=== PATIENT | female | born 1950 | race Caucasian/White ===

== ENCOUNTER 2018-01-18 05:50 | Inpatient (IN) | payer OTHER ==
[~2018-01-18] VITALS: Ht 162.6 cm; Wt 64.4 kg
[2018-01-18] MEDS ORDERED: ALVIMOPAN 12 MG CAPSULE PO ONE ×2 (06:26→06:45)
[2018-01-18] MEDS ORDERED: CEFOXITIN 2 GM/DEXTROSE,ISO 50 ML (PREMIX) IV ONE (06:45)
[2018-01-18] MEDS ORDERED: cefOXitin SODIUM 2 GM in D5W 100 ML IV ONE (06:45)
[2018-01-18] MEDS ORDERED: LR 1,000 ML IV.SOLN IV ONE (07:30)
[2018-01-18] MEDS ORDERED: MORPHINE SULFATE 10MG/10ML PF AMP EP ONE (07:30)
[2018-01-18] MEDS ORDERED: DEXAMETHASONE SOD PHOSPHATE 4 MG/ML VIAL IVP ONE (07:30)
[2018-01-18] MEDS ORDERED: PROPOFOL 200MG/ 20ML VIAL (DIPRIVAN) IV ONE (07:30)
[2018-01-18] MEDS ORDERED: ONDANSETRON HCL 4 MG/2 ML VIAL IVP ONE (07:30)
[2018-01-18] MEDS ORDERED: ROCURONIUM BROMIDE 10 MG/ML (ZEMURON) IV ONE (07:30)
[2018-01-18] MEDS ORDERED: SEVOFLURANE 15 MIN GAS INH ONE (07:30)
[2018-01-18] MEDS ORDERED: KETOROLAC TROMETHAMINE 30 MG VIAL IVP ONE (07:30)
[2018-01-18] MEDS ORDERED: cefOXitin SODIUM 2 GM/VIAL (MEFOXIN) IV ONE (07:30)
[2018-01-18] MEDS ORDERED: GLYCOPYRROLATE 0.2 MG/ML VIAL IJ ONE (07:30)
[2018-01-18] MEDS ORDERED: BUPIVACAINE LIPOSOME/PF 266 MG/20 ML VIAL INFIL ONE (07:30)
[2018-01-18] MEDS ORDERED: fentaNYL CITRATE/PF 100 MCG/2 ML AMP IVP ONE (07:30)
[2018-01-18] MEDS ORDERED: MIDAZOLAM HCL 5 MG/5 ML VIAL IVP ONE (07:30)
[2018-01-18] MEDS ORDERED: NEOSTIGMINE METHYLSULFATE 1 MG/ML, 10 ML VIAL IVP ONE (07:30)
[2018-01-18] MEDS ORDERED: POLYMYXIN 500,000/BACIT.10,000 UNITS in NS IRR 1 L IR ONE (07:58)
[2018-01-18] MEDS ORDERED: MORPHINE SULFATE 10MG/10ML PF AMP SP SCH (08:30)
[2018-01-18] MEDS ORDERED: ONDANSETRON HCL 4 MG/2 ML VIAL IVP PRN ×3 (08:30→10:15)
[2018-01-18] MEDS ORDERED: NALBUPHINE HCL 10 MG/ML AMP IVP PRN (08:30)
[2018-01-18] MEDS ORDERED: KETOROLAC TROMETHAMINE 30 MG VIAL IVP PRN (08:30)
[2018-01-18] MEDS ORDERED: NALOXONE HCL 0.4 MG/ML AMP (NARCAN) IVP PRN ×2 (08:30)
[2018-01-18] MEDS ORDERED: DIPHENHYDRAMINE INJ 50 MG/ML VIAL IVP PRN (08:30)
[2018-01-18] MEDS ORDERED: KETOROLAC TROMETHAMINE 30 MG VIAL IM PRN (08:30)
[2018-01-18] MEDS ORDERED: fentaNYL CITRATE/PF 100 MCG/2 ML AMP IVP PRN ×2 (08:30)
[2018-01-18] MEDS ORDERED: ACETAMINOPHEN 325 MG TABLET PO PRN (10:15)
[2018-01-18] MEDS ORDERED: HYDROcodone/ACETAMIN 5-325 MG TAB (NORCO/ VICODIN) PO PRN ×2 (10:15)
[2018-01-18] MEDS ORDERED: HYDROmorphone 1 MG INJ. 1 MG/ML AMPUL IVP PRN (10:15)
[2018-01-18] MEDS ORDERED: fentaNYL CITRATE/PF 100 MCG/2 ML AMP ONE (10:29)
[2018-01-18 10:43] LABS: HEMATOCRIT 32.8 % (36-48); HEMOGLOBIN 10.8 g/dL (12.0-16.0)
[2018-01-18 10:47] LABS: CALCIUM 7.9 mg/dL (8.4-11.0); CREATININE 1.01 mg/dL (0.55-1.30); POTASSIUM 3.7 mmol/L (3.5-5.1)
[2018-01-18] MEDS ORDERED: ONDANSETRON HCL 4 MG/2 ML VIAL ONE (10:59)
[2018-01-18 11:05] VITALS: BP_SYST 124
[2018-01-18] MEDS: D5/0.45 NS 1,000 ML IV SCH ×2 (11:39→20:51)
[2018-01-18 16:55] VITALS: BP_SYST 117
[2018-01-18 18:21] VITALS: BP_SYST 124
[2018-01-18] MEDS ORDERED: ZOLPIDEM TARTRATE 5 MG TABLET PO PRN (18:30)
[2018-01-18 20:57] VITALS: BP_SYST 140
[2018-01-18] MEDS: FAMOTIDINE PF 20 MG/2 ML VIAL IVP SCH (21:14)
[2018-01-18] MEDS: cefOXitin SODIUM 2 GM in D5W 100 ML IV SCH (21:15)
[2018-01-18] MEDS: ALVIMOPAN 12 MG CAPSULE PO SCH (21:15)
[2018-01-19 00:53] VITALS: BP_SYST 130
[2018-01-19] MEDS: D5/0.45 NS 1,000 ML IV SCH ×3 (06:33→20:35)
[2018-01-19 07:23] LABS: EOSINOPHILS % (AUTO) 0.1 % (0.0-4.0); HEMOGLOBIN 11.7 g/dL (12.0-16.0); LYMPHOCYTES # (AUTO) 0.8 K/uL (1.0-5.5); LYMPHOCYTES % (AUTO) 7.1 % (20.5-51.5); WHITE BLOOD COUNT (AUTO) 11.9 K/uL (4.8-10.8)
[2018-01-19 07:36] LABS: BASOPHILS % (AUTO) 0.3 % (0.0-2.0); HEMATOCRIT 34.4 % (36-48); MEAN CORPUSCULAR HEMOGLOBIN 29 pg (27-31); MEAN CORPUSCULAR HGB CONC 34 % (32-36); MEAN CORPUSCULAR VOLUME 85 fL (79.0-98.0); MONOCYTES # (AUTO) 0.7 K/uL (0.0-1.0); MONOCYTES % (AUTO) 5.5 % (1.7-9.3); NEUTROPHILS # (AUTO) 10.4 K/uL (1.8-7.7); PLATELET COUNT (AUTO) 303 K/uL (130-430); RED BLOOD CELL COUNT(AUTO) 4.04 MIL/uL (4.2-6.2); RED CELL DISTRIBUTION WIDTH 13.1 % (9.0-15.0)
[2018-01-19 07:49] LABS: ALBUMIN 3.1 g/dL (3.4-4.8); CALCIUM 8.1 mg/dL (8.4-11.0); CREATININE 0.89 mg/dL (0.55-1.30); POTASSIUM 3.8 mmol/L (3.5-5.1); TOTAL BILIRUBIN 0.3 mg/dL (0.0-1.0)
[2018-01-19 08:10] VITALS: BP_SYST 128
[2018-01-19] MEDS: cefOXitin SODIUM 2 GM in D5W 100 ML IV SCH (08:26)
[2018-01-19] MEDS: ALVIMOPAN 12 MG CAPSULE PO SCH ×2 (08:27→20:51)
[2018-01-19] MEDS: FAMOTIDINE PF 20 MG/2 ML VIAL IVP SCH ×2 (08:27→20:53)
[2018-01-19] MEDS: ENOXAPARIN SODIUM 30 MG/0.3 ML SYRINGE SUBCUT SCH (08:28)
[2018-01-19 13:19] VITALS: BP_SYST 131
[2018-01-19 17:06] VITALS: BP_SYST 137
[2018-01-19] MEDS: METOCLOPRAMIDE HCL 10 MG/2 ML VIAL IVP SCH (17:53)
[2018-01-19 20:00] VITALS: BP_SYST 134
[2018-01-20 00:34] VITALS: BP_SYST 135
[2018-01-20] MEDS ORDERED: COMMUNICATION ORDER XX ONE (05:45)
[2018-01-20] MEDS: METOCLOPRAMIDE HCL 10 MG/2 ML VIAL IVP SCH ×3 (05:48→11:33)
[2018-01-20] MEDS: D5/0.45 NS 1,000 ML IV SCH (07:08)
[2018-01-20] MEDS: FAMOTIDINE PF 20 MG/2 ML VIAL IVP SCH (09:18)
[2018-01-20] MEDS: ALVIMOPAN 12 MG CAPSULE PO SCH (09:18)
[2018-01-20] MEDS: ENOXAPARIN SODIUM 30 MG/0.3 ML SYRINGE SUBCUT SCH (09:19)
[2018-01-20 09:25] VITALS: BP_SYST 151
[2018-01-20 10:09] VITALS: BP_SYST 148
== END 2018-01-20 12:00 | disposition home or self-care (01) | DRG 331 ==
LOC: SMU 05:50
PROVIDERS: ADMIT Colon & Rectal Surgery; ATTEND Colon & Rectal Surgery
PROC: 0DTF0ZZ Resection of Right Large Intestine, Open Approach (ICD-10-PCS; principal; 2018-01-18 07:30)
DX: C18.4 Malignant neoplasm of transverse colon (principal); N18.3 Chronic kidney disease, stage 3 (moderate); E78.5 Hyperlipidemia, unspecified; G47.00 Insomnia, unspecified; M81.0 Age-related osteoporosis without current pathological fracture; H04.123 Dry eye syndrome of bilateral lacrimal glands; H40.9 Unspecified glaucoma; E78.00 Pure hypercholesterolemia, unspecified; H26.9 Unspecified cataract; Z85.42 Personal history of malignant neoplasm of other parts of uterus; Z90.710 Acquired absence of both cervix and uterus; Z82.49 Family history of ischemic heart disease and other diseases of the circulatory system; Z80.3 Family history of malignant neoplasm of breast; Z80.7 Family history of other malignant neoplasms of lymphoid, hematopoietic and related tissues; Z82.3 Family history of stroke; Z81.1 Family history of alcohol abuse and dependence; Z87.891 Personal history of nicotine dependence; Z79.899 Other long term (current) drug therapy; Z90.49 Acquired absence of other specified parts of digestive tract
CPT/HCPCS: 36415; 80048; 80053; 85018-TC; 85025; 87081; 88307; 88309; C1727; C9290; J0694; J1100; J1170; J1650; J1885; J2250; J2274; J2405; J2704; J2710; J2765; J3010; J3490; J7060; J7120